=== PATIENT | female | born 1995 | race Two or more races ===

== ENCOUNTER 2017-12-26 11:31 | Inpatient (IN) | payer OTHER ==
[2017-12-26 13:23] LABS: ADD UMIC YES; UR ASCORBIC ACID NEGATIVE (NEGATIVE); UR BACTERIA FEW /HPF (NONE SEEN); UR BILIRUBIN (Dip) NEGATIVE (NEGATIVE); UR BLOOD (Dip) NEGATIVE (NEGATIVE); UR CLARITY CLEAR (CLEAR); UR COLOR YELLOW (YELLOW); UR GLUCOSE (Dip) NEGATIVE (NEGATIVE); UR KETONES (Dip) NEGATIVE (NEGATIVE); UR LEUKOCYTE ESTERASE (Dip) 3+ Leu/ul (NEGATIVE); UR MUCUS FEW /HPF (NONE SEEN); UR NITRITE (Dip) NEGATIVE (NEGATIVE); UR RBC 2 /HPF (0-5); UR SPECIFIC GRAVITY (Dip) 1.019 (1.003-1.030); UR TOTAL PROTEIN (Dip) NEGATIVE (NEGATIVE); UR UROBILINOGEN (Dip) NEGATIVE (NEGATIVE); UR WBC 8 /HPF (0-5)
[2017-12-26] MEDS: CEFAZOLIN 2 GM/50 ML (PMX) 50 ML IV ×2 (14:49→22:29)
[2017-12-26] MEDS: LACTATED RINGER'S 1,000 ML IV ×2 (14:49→22:29)
[2017-12-26 15:04] LABS: ADD MAN DIFF? NO
[2017-12-26 15:08] LABS: ABNORMAL IP MESSAGE 1; HEMATOCRIT 28.7 % (37.0-47.0); HEMOGLOBIN 9.4 g/dl (12.0-16.0); MEAN CORPUSCULAR HEMOGLOBIN 29.1 pg (29.0-33.0); MEAN CORPUSCULAR HGB CONC 32.8 g/dl (32.0-37.0); MEAN CORPUSCULAR VOLUME 88.9 fl (72.0-104.0); MEAN PLATELET VOLUME 10.5 fl (7.4-10.4); PLATELET COUNT 326 10^3/UL (140-415); RED BLOOD COUNT 3.23 10^6/ul (4.20-5.40); RED CELL DISTRIBUTION WIDTH 12.7 % (11.5-14.5)
[2017-12-26 15:08] LABS: WHITE BLOOD COUNT 13.7 10^3/ul (4.8-10.8)
[2017-12-26 15:11] LABS: POSITIVE DIFF @See below
[2017-12-26 15:27] LABS: ALANINE AMINOTRANSFERASE 19 IU/L (13-69); ALBUMIN 3.5 g/dl (3.3-4.9); ALBUMIN/GLOBULIN RATIO 1.12; ALKALINE PHOSPHATASE 59 IU/L (42-121); ANION GAP 10 (8-16); ASPARTATE AMINO TRANSFERASE 21 IU/L (15-46); BILIRUBIN,INDIRECT 0.1 mg/dl (0-1.1); BILIRUBIN,TOTAL 0.1 mg/dl (0.2-1.3); BLOOD UREA NITROGEN 8 mg/dl (7-20); CALCIUM 8.6 mg/dl (8.4-10.2); CARBON DIOXIDE 23 mmol/L (21-31); CHLORIDE 107 mmol/L (97-110); GLUCOSE 75 mg/dl (70-220); POTASSIUM 3.7 mmol/L (3.5-5.1); SODIUM 136 mmol/L (135-144); TOTAL PROTEIN 6.6 g/dl (6.1-8.1)
[2017-12-26 16:41] LABS: BAND NEUTROPHILS #M 0.6 10^3/ul (0.0-0.6); BAND NEUTROPHILS % (M) 5 % (0-10); EOSINOPHILS % (M) 1 % (0-7); GIANT THROMBO% (M) 1 % (0-0); LYMPHOCYTES #M 2.8 10^3/ul (0.8-2.9); LYMPHOCYTES % (M) 21 % (18-55); MONOCYTE #M 0.6 10^3/ul (0.3-0.9); MONOCYTES % (M) 5 % (0-13); PLATELET ESTIMATE NORMAL; SEG NEUT #M 9.4 10^3/ul (1.6-7.5); SEGMENTED NEUTROPHILS (M) % 68 % (30-74); SMUDGE%M 1 % (0-0)
[2017-12-27] MEDS ORDERED: ACETAMINOPHEN 325 MG TAB PO
[2017-12-27] MEDS: CEFAZOLIN 2 GM/50 ML (PMX) 50 ML IV ×2 (06:09→14:06)
[2017-12-27] MEDS: LACTATED RINGER'S 1,000 ML IV (09:08)
[2017-12-27] MEDS: PRENATAL VITAMIN PO (09:08)
[2017-12-27] MEDS: FERROUS SULFATE (EC) 325 MG TAB PO (09:08)
== END 2017-12-27 15:02 | disposition home or self-care (01) | DRG 781 ==
LOC: OBT 11:31 → L-D 11:31 → OBT 12:23 → L-D 12:23
DX: O23.02 Infections of kidney in pregnancy, second trimester (principal); R10.9 Unspecified abdominal pain; Z3A.27 27 weeks gestation of pregnancy
CPT/HCPCS: 76775; 76815; 76817; 76818; 80053; 81001; 85025; 87086

== ENCOUNTER 2018-02-27 13:44 | Outpatient (CLI) | payer OTHER ==
[2018-02-27 15:38] LABS: ADD UMIC YES; UR ASCORBIC ACID NEGATIVE (NEGATIVE); UR BACTERIA FEW /HPF (NONE SEEN); UR BILIRUBIN (Dip) NEGATIVE (NEGATIVE); UR BLOOD (Dip) NEGATIVE (NEGATIVE); UR CLARITY CLEAR (CLEAR); UR COLOR STRAW (YELLOW); UR GLUCOSE (Dip) NEGATIVE (NEGATIVE); UR KETONES (Dip) NEGATIVE (NEGATIVE); UR LEUKOCYTE ESTERASE (Dip) TRACE Leu/ul (NEGATIVE); UR NITRITE (Dip) NEGATIVE (NEGATIVE); UR RBC 0 /HPF (0-5); UR SPECIFIC GRAVITY (Dip) 1.004 (1.003-1.030); UR TOTAL PROTEIN (Dip) NEGATIVE (NEGATIVE); UR UROBILINOGEN (Dip) NEGATIVE (NEGATIVE); UR WBC 0 /HPF (0-5)
== END 2018-02-27 16:27 | disposition home or self-care (01) ==
LOC: OBT 13:44 → L-D 13:44 → OBT 16:27
DX: O36.5930 Maternal care for other known or suspected poor fetal growth, third trimester, not applicable or unspecified (principal); Z3A.36 36 weeks gestation of pregnancy
CPT/HCPCS: 76818; 81001; 87086

== ENCOUNTER 2018-03-02 15:41 | Outpatient (CLI) | payer SELFPAY, OTHER | END 2018-03-02 17:04 | disposition home or self-care (01) | LOC: OBT 15:41 → L-D 15:42 → OBT 17:04 | DX: O36.5920 Maternal care for other known or suspected poor fetal growth, second trimester, not applicable or unspecified (principal); Z3A.36 36 weeks gestation of pregnancy | CPT/HCPCS: 76815; 76818 ==

== ENCOUNTER 2018-03-09 09:45 | Outpatient (CLI) | payer SELFPAY ==
[2018-03-09 11:02] LABS: ADD UMIC YES; UR ASCORBIC ACID NEGATIVE (NEGATIVE); UR BACTERIA FEW /HPF (NONE SEEN); UR BILIRUBIN (Dip) NEGATIVE (NEGATIVE); UR BLOOD (Dip) NEGATIVE (NEGATIVE); UR CLARITY CLEAR (CLEAR); UR COLOR STRAW (YELLOW); UR GLUCOSE (Dip) NEGATIVE (NEGATIVE); UR KETONES (Dip) NEGATIVE (NEGATIVE); UR LEUKOCYTE ESTERASE (Dip) 2+ Leu/ul (NEGATIVE); UR NITRITE (Dip) NEGATIVE (NEGATIVE); UR RBC 3 /HPF (0-5); UR SPECIFIC GRAVITY (Dip) 1.005 (1.003-1.030); UR SQUAMOUS EPITHELIAL CELL FEW /HPF (FEW); UR TOTAL PROTEIN (Dip) NEGATIVE (NEGATIVE); UR UROBILINOGEN (Dip) NEGATIVE (NEGATIVE); UR WBC 1 /HPF (0-5)
== END 2018-03-09 13:56 | disposition home or self-care (01) ==
LOC: OBT 09:45 → L-D 09:45 → OBT 13:56
DX: O36.5930 Maternal care for other known or suspected poor fetal growth, third trimester, not applicable or unspecified (principal); Z3A.37 37 weeks gestation of pregnancy
CPT/HCPCS: 76818; 76820; 81001; 87086

== ENCOUNTER 2018-03-12 10:57 | Inpatient (IN) | payer OTHER ==
[2018-03-12] MEDS ORDERED: METHYLERGONOVINE 0.2 MG INJ IM (12:00)
[2018-03-12] MEDS ORDERED: LIDOCAINE 1% (MPF) 30 ML INJ INJ (12:00)
[2018-03-12] MEDS ORDERED: CARBOPROST 250 MCG INJ IM (12:00)
[2018-03-12] MEDS ORDERED: OXYTOCIN 30 UNITS/LR 500 ML IV ×2 (12:00)
[2018-03-12] MEDS ORDERED: MISOPROSTOL 200 MCG TAB PR (12:00)
[2018-03-12] MEDS: LACTATED RINGER'S 1,000 ML IV ×2 (12:07→18:57)
[2018-03-12 13:15] LABS: ABNORMAL IP MESSAGE 1; HEMATOCRIT 30.9 % (37.0-47.0); HEMOGLOBIN 9.4 g/dl (12.0-16.0); MEAN CORPUSCULAR HEMOGLOBIN 24.4 pg (29.0-33.0); MEAN CORPUSCULAR HGB CONC 30.4 g/dl (32.0-37.0); MEAN CORPUSCULAR VOLUME 80.1 fl (72.0-104.0); MEAN PLATELET VOLUME 10.6 fl (7.4-10.4); PLATELET COUNT 479 10^3/UL (140-415); RED BLOOD COUNT 3.86 10^6/ul (4.20-5.40)
[2018-03-12 13:15] LABS: WHITE BLOOD COUNT 14.2 10^3/ul (4.8-10.8)
[2018-03-12 13:17] LABS: POSITIVE DIFF @See below
[2018-03-12 13:18] LABS: ADD MAN DIFF? YES
[2018-03-12 13:36] LABS: INR 0.91; PROTIME 12.3 Sec (11.9-14.9)
[2018-03-12 13:49] LABS: ADD UMIC YES; UR ASCORBIC ACID NEGATIVE (NEGATIVE); UR BACTERIA FEW /HPF (NONE SEEN); UR BILIRUBIN (Dip) NEGATIVE (NEGATIVE); UR BLOOD (Dip) 1+ mg/dL (NEGATIVE); UR CLARITY SLIGHTLY CLOUDY (CLEAR); UR COLOR YELLOW (YELLOW); UR GLUCOSE (Dip) NEGATIVE (NEGATIVE); UR KETONES (Dip) NEGATIVE (NEGATIVE); UR LEUKOCYTE ESTERASE (Dip) 3+ Leu/ul (NEGATIVE); UR MUCUS FEW /HPF (NONE SEEN); UR NITRITE (Dip) NEGATIVE (NEGATIVE); UR RBC 5 /HPF (0-5); UR SPECIFIC GRAVITY (Dip) 1.016 (1.003-1.030); UR SQUAMOUS EPITHELIAL CELL FEW /HPF (FEW); UR TOTAL PROTEIN (Dip) NEGATIVE (NEGATIVE); UR UROBILINOGEN (Dip) NEGATIVE (NEGATIVE); UR WBC 2 /HPF (0-5)
[2018-03-12 14:01] LABS: ANISOCYTOSIS 1+ (0-0); BAND NEUTROPHILS #M 1.2 10^3/ul (0.0-0.6); BAND NEUTROPHILS % (M) 9 % (0-10); BASOPHIL #M 0.1 10^3/ul (0.0-0.0); BASOPHILS % (M) 1 % (0-2); LYMPHOCYTES #M 3.9 10^3/ul (0.8-2.9); LYMPHOCYTES % (M) 28 % (18-55); MICROCYTOSIS 1+ (0-0); MYELOCYTES #M 0.9 10^3/ul (0.0-0.0); MYELOCYTES % (M) 7 % (0-0); PLATELET ESTIMATE INCREASED; POLYCHROMASIA 1+ (0-0); REACTIVE LYMPHOCYTES #M 0.7 10^3/ul (0.0-0.0); REACTIVE LYMPHOCYTES% (M) 5 % (0-0); SEG NEUT #M 7.3 10^3/ul (1.6-7.5); SEGMENTED NEUTROPHILS (M) % 50 % (30-74); SMUDGE%M 9 % (0-0)
[2018-03-12 14:07] LABS: HEPATITIS B SURFACE ANTIGEN NEGATIVE (NEGATIVE)
[2018-03-12] MEDS ORDERED: NA PHOSPHATE/BIPHOS 133 ML ENEMA PR (14:30)
[2018-03-12] MEDS: MISOPROSTOL 50 MCG CAPSULE PO ×2 (14:52→18:52)
[2018-03-12 23:14] LABS: RAPID PLASMA REAGIN NONREACTIVE (NR)
[2018-03-13] MEDS: MISOPROSTOL 50 MCG CAPSULE PO ×3 (02:10→17:20)
[2018-03-13] MEDS: LACTATED RINGER'S 1,000 ML IV ×3 (02:39→19:19)
[2018-03-13 03:39] LABS: AMPHETAMINE/METHAMPHETAMINE Negative (NEGATIVE); BARBITURATES Negative (NEGATIVE); BENZODIAZEPINES Negative (NEGATIVE); CANNABINOIDS Negative (NEGATIVE); COCAINE Negative (NEGATIVE); OPIATES Negative (NEGATIVE)
[2018-03-14] MEDS: LACTATED RINGER'S 1,000 ML IV ×4 (04:30→21:26)
[2018-03-14] MEDS: MISOPROSTOL 50 MCG CAPSULE PO (09:35)
[2018-03-14] MEDS: BUTORPHANOL 2 MG INJ IV (15:25)
[2018-03-14] MEDS: OXYTOCIN 30 UNITS/LR 500 ML IV (16:24)
[2018-03-14] MEDS ORDERED: NALOXONE (0.4 MG/ML) INJ IV (18:00)
[2018-03-14] MEDS ORDERED: KETOROLAC 30 MG INJ IV (18:00)
[2018-03-14] MEDS ORDERED: DIPHENHYDRAMINE 50 MG INJ IV (18:00)
[2018-03-14] MEDS ORDERED: HYDROmorphONE 0.5 MG/0.5 ML SYG IV ×2 (18:00)
[2018-03-14] MEDS: FENTAnyl 2MCG/ML-ROPIV 0.2% 100 ML BAG EPI (21:28)
[2018-03-14] MEDS ORDERED: OXYTOCIN 30 UNITS/LR 500 ML IV (22:00)
[2018-03-14] MEDS: ACETAMINOPHEN 325 MG TAB PO (22:29)
[2018-03-14] MEDS: ONDANSETRON 4 MG INJ IV (22:57)
[2018-03-15] MEDS: LACTATED RINGER'S 1,000 ML IV ×2 (02:56→07:53)
[2018-03-15] MEDS: FENTAnyl 2MCG/ML-ROPIV 0.2% 100 ML BAG EPI ×2 (03:11→10:26)
[2018-03-15] MEDS: OXYTOCIN 30 UNITS/LR 500 ML IV (08:34)
[2018-03-15] MEDS: AMPICILLIN 2 GM/NS (PMX) 100 ML IV (11:41)
[2018-03-15] MEDS ORDERED: MINERAL OIL LIGHT 10 ML VIAL TOP (12:00)
[2018-03-15] MEDS ORDERED: LIDOCAINE 0.5% (SDV) 50 ML INJ INJ (12:00)
[2018-03-15] MEDS ORDERED: AMPICILLIN 1 GM/NS (PMX) 50 ML IV (14:30)
[2018-03-15] MEDS: IBUPROFEN 600 MG TAB PO ×3 (15:02→23:50)
[2018-03-15] MEDS: LACTATED RINGER'S 1,000 ML IV* ×2 (17:03→18:43)
[2018-03-15] MEDS ORDERED: METHYLERGONOVINE 0.2 MG INJ IM (17:30)
[2018-03-15] MEDS ORDERED: OXYTOCIN 30 UNITS/LR 500 ML IV (17:30)
[2018-03-15] MEDS ORDERED: MISOPROSTOL 200 MCG TAB PR (17:30)
[2018-03-15] MEDS ORDERED: CARBOPROST 250 MCG INJ IM (17:30)
[2018-03-15] MEDS ORDERED: ZOLPIDEM 5 MG TAB PO (17:30)
[2018-03-15] MEDS ORDERED: HYDROCODONE/APAP (5/325) TAB PO (17:30)
[2018-03-15] MEDS: WITCH HAZEL/GLYCERIN PAD PR (17:45)
[2018-03-15] MEDS: CEPHALEXIN 500 MG CAP PO (17:45)
[2018-03-15] MEDS: BENZOCAINE 20% 56 ML SPRAY TOP (17:46)
[2018-03-15] MEDS: LANOLIN 7 GM TUBE TOP (17:46)
[2018-03-15] MEDS: DIBUCAINE 1% 30 GM OINT TOP (17:46)
[2018-03-15] MEDS: MAGNESIUM HYDROXIDE 30ML CUP PO (22:02)
[2018-03-15] MEDS: SENNA/DOCUSATE NA (8.6MG/50MG) TAB PO (22:02)
[2018-03-16] MEDS: CEPHALEXIN 500 MG CAP PO ×5 (00:13→23:38)
[2018-03-16] MEDS: HYDROCODONE/APAP (5/325) TAB PO (01:08)
[2018-03-16] MEDS: IBUPROFEN 600 MG TAB PO ×4 (05:51→23:38)
[2018-03-16 07:34] LABS: ADD MAN DIFF? NO
[2018-03-16 07:43] LABS: WHITE BLOOD COUNT 16.1 10^3/ul (4.8-10.8)
[2018-03-16 07:43] LABS: BASOPHIL # 0.1 10^3/ul (0.0-0.1); BASOPHILS % 0.6 % (0.0-2.0); EOSINOPHILS # 0.2 10^3/ul (0.0-0.5); HEMOGLOBIN 8.2 g/dl (12.0-16.0); LYMPHOCYTES # 2.9 10^3/ul (0.8-2.9); LYMPHOCYTES % 18.2 % (18.0-55.0); MEAN CORPUSCULAR HEMOGLOBIN 24.8 pg (29.0-33.0); MEAN CORPUSCULAR HGB CONC 31.5 g/dl (32.0-37.0); MEAN CORPUSCULAR VOLUME 78.8 fl (72.0-104.0); MEAN PLATELET VOLUME 10.1 fl (7.4-10.4); MONOCYTE # 1.1 10^3/ul (0.3-0.9); MONOCYTES % 6.8 % (0.0-13.0); NEUTROPHIL # 11.3 10^3/ul (1.6-7.5); NEUTROPHILS % 70.1 % (30.0-74.0); PLATELET COUNT 369 10^3/UL (140-415); RED CELL DISTRIBUTION WIDTH 15.4 % (11.5-14.5)
[2018-03-16] MEDS: SENNA/DOCUSATE NA (8.6MG/50MG) TAB PO ×2 (08:48→21:51)
[2018-03-16] MEDS: MAGNESIUM HYDROXIDE 30ML CUP PO ×2 (08:48→21:51)
[2018-03-17] MEDS: IBUPROFEN 600 MG TAB PO ×2 (05:54→12:30)
[2018-03-17] MEDS: CEPHALEXIN 500 MG CAP PO ×2 (05:54→12:30)
[2018-03-17 06:36] LABS: ADD MAN DIFF? NO
[2018-03-17 06:38] LABS: WHITE BLOOD COUNT 13.7 10^3/ul (4.8-10.8)
[2018-03-17 06:38] LABS: BASOPHIL # 0.1 10^3/ul (0.0-0.1); EOSINOPHILS # 0.3 10^3/ul (0.0-0.5); EOSINOPHILS % 2.2 % (0.0-7.0); HEMATOCRIT 27.5 % (37.0-47.0); HEMOGLOBIN 8.3 g/dl (12.0-16.0); MEAN CORPUSCULAR HGB CONC 30.2 g/dl (32.0-37.0); MEAN CORPUSCULAR VOLUME 79.5 fl (72.0-104.0); MONOCYTE # 0.9 10^3/ul (0.3-0.9); MONOCYTES % 6.8 % (0.0-13.0); NEUTROPHIL # 8.7 10^3/ul (1.6-7.5); NEUTROPHILS % 63.5 % (30.0-74.0); PLATELET COUNT 381 10^3/UL (140-415); RED BLOOD COUNT 3.46 10^6/ul (4.20-5.40); RED CELL DISTRIBUTION WIDTH 15.9 % (11.5-14.5)
[2018-03-17] MEDS: SENNA/DOCUSATE NA (8.6MG/50MG) TAB PO (09:34)
[2018-03-17] MEDS: MAGNESIUM HYDROXIDE 30ML CUP PO (09:34)
[2018-03-17] MEDS: DIPHTH/TET/ACEL PERTUSS (ADULT) 0.5 ML VIAL IM* (09:35)
[2018-03-17] MEDS: MEASLES,MUMPS,RUBELLA VACCINE INJ SC* (09:35)
[2018-03-17] MEDS: VARICELLA VACCINE LIVE/PF 1,350 UNIT/0.5 ML ML SC* (13:09)
== END 2018-03-17 13:15 | disposition home or self-care (01) | DRG 807 ==
LOC: PP1 03-15 16:44 → L-D 10:57
PROC: 0U7C7ZZ Dilation of Cervix, Via Natural or Artificial Opening (ICD-10-PCS; 2018-03-14)
PROC: 10E0XZZ Delivery of Products of Conception, External Approach (ICD-10-PCS; principal; 2018-03-15)
PROC: 0HQ9XZZ Repair Perineum Skin, External Approach (ICD-10-PCS; 2018-03-15)
DX: O36.5930 Maternal care for other known or suspected poor fetal growth, third trimester, not applicable or unspecified (principal); Z37.0 Single live birth; O70.9 Perineal laceration during delivery, unspecified; Z3A.38 38 weeks gestation of pregnancy; Z86.59 Personal history of other mental and behavioral disorders; Z23 Encounter for immunization
CPT/HCPCS: 62319; 76815; 80307; 81001; 85025; 85610; 85730; 86592; 86850; 86900; 86901; 87086; 87340; 90715; 90716

== ENCOUNTER 2018-12-15 14:43 | Outpatient (CLI) | payer OTHER ==
[2018-12-15 17:54] LABS: ADD MAN DIFF? NO
[2018-12-15 17:59] LABS: BASOPHIL # 0.1 10^3/ul (0.0-0.1); BASOPHILS % 0.7 % (0.0-2.0); EOSINOPHILS # 0.1 10^3/ul (0.0-0.5); EOSINOPHILS % 0.8 % (0.0-7.0); HEMATOCRIT 30.2 % (37.0-47.0); HEMOGLOBIN 9.2 g/dl (12.0-16.0); LYMPHOCYTES # 2.3 10^3/ul (0.8-2.9); LYMPHOCYTES % 17.7 % (15.0-51.0); MEAN CORPUSCULAR HEMOGLOBIN 23.9 pg (29.0-33.0); MEAN CORPUSCULAR HGB CONC 30.5 g/dl (32.0-37.0); MEAN CORPUSCULAR VOLUME 78.4 fl (82.0-101.0); MEAN PLATELET VOLUME 10.9 fl (7.4-10.4); MONOCYTE # 0.7 10^3/ul (0.3-0.9); MONOCYTES % 5.3 % (0.0-11.0); NEUTROPHIL # 9.4 10^3/ul (1.6-7.5); NEUTROPHILS % 71.1 % (39.0-77.0); PLATELET COUNT 442 10^3/UL (140-415); RED BLOOD COUNT 3.85 10^6/ul (4.20-5.40); RED CELL DISTRIBUTION WIDTH 15.9 % (11.5-14.5)
[2018-12-15 17:59] LABS: WHITE BLOOD COUNT 13.2 10^3/ul (4.8-10.8)
[2018-12-15 18:43] LABS: ALANINE AMINOTRANSFERASE 19 IU/L (13-69); ALBUMIN 3.5 g/dl (3.3-4.9); ALBUMIN/GLOBULIN RATIO 1.06; ALKALINE PHOSPHATASE 87 IU/L (42-121); ANION GAP 9 (5-13); ASPARTATE AMINO TRANSFERASE 33 IU/L (15-46); BILIRUBIN,INDIRECT 0.4 mg/dl (0-1.1); BILIRUBIN,TOTAL 0.4 mg/dl (0.2-1.3); BLOOD UREA NITROGEN 6 mg/dl (7-20); CARBON DIOXIDE 23 mmol/L (21-31); CHLORIDE 104 mmol/L (97-110); Estimated GFR > 60 mL/min (>60); GLUCOSE 69 mg/dl (70-220); POTASSIUM 3.8 mmol/L (3.5-5.1); SODIUM 136 mmol/L (135-144); TOTAL PROTEIN 6.8 g/dl (6.1-8.1)
== END 2018-12-15 19:13 | disposition home or self-care (01) ==
LOC: OBT 14:43 → L-D 14:43 → OBT 19:13
DX: O26.893 Other specified pregnancy related conditions, third trimester (principal); Z3A.32 32 weeks gestation of pregnancy
CPT/HCPCS: 76818; 80053; 85025; 85460; 86900; 86901